=== PATIENT | male | born 1990 | race Hispanic/Latino ===

== ENCOUNTER 2024-06-04 17:13 | Emergency (ER) | payer BC ==
[~2024-06-04] VITALS: Ht 185.4 cm; Wt 117.0 kg
--- NOTE | 2024-06-04 17:18 | NUR ---
UA CUP PROVIDED
--- NOTE | 2024-06-04 17:26 | ERN ---
ED Note History of Present Illness Stated Complaint: ABD PAIN Chief Complaint: Abdominal Pain Time Seen by MD: 17:15 Time Seen by Midlevel: 17:15 Dictation: The patient is a 34-year-old male with no past medical history who presents to the emergency department with complaints of epigastric abdominal pain onset yesterday associated with nausea. Reports diarrhea episodes on Friday. Patient denies any constipation, fevers. Denies any urinary discomfort. Allergies: Coded Allergies: Penicillins (Unverified Allergy, Unknown, 06/04/24) Past Medical History Past Medical History: No Pertinent History Surgical History: None RN Note Reviewed/Agreed w/PFSH: Yes Review of System Dictation Constitutional: Negative for fever,chills, and weight loss Eyes: Negative for injury, pain,redness, and discharge ENT: Negative for injury,pain or swelling Cardiovascular: Negative for chest pain, palpitations, and edema Respiratory: Negative for shortness of breath, cough, and wheezing, Abdomen/GI: Negative for , vomiting, diarrhea, and constipation positive for abdominal pain, nausea Back: Negative for injury and pain : Negative for injury, bleeding and discharge MS/Extremity: Negative for injury and deformity Skin: Negative for rash, and discoloration Neuro: Negative for headache, weakness, numbness, tingling, and seizure Psych: Negative for suicide ideation, homicidal ideation, and hallucinations Initial Vital Sign VS Vital Signs Date Time Temp Pulse Resp B/P (MAP) Pulse Ox O2 Delivery O2 Flow Rate FiO2 06/04/24 17:15 97.0 87 16 154/99 99 Room Air 06/04/24 19:42 0 21 Physical Exam Dictation Vital Signs reviewed General Appearance: Alert, oriented x 3, no acute distress, well developed, nourished. Head and Face: non-traumatic. Eyes: PERRL, pink conjunctivas, eyelid no trauma, anterior chamber with arcus senilis. Ears: Pinnas intact and no signs of trauma or erythema ear canals clear and no discharge TM no erythema Nose: No discharge, no bleeding. Oropharynx: Mouth normal, tongue pink. pharynx clear,no erythema, tonsils no exudates, no abscesses noted, mucous membrane moist Neck: Supple, non-tender, no thyromegaly, no masses, no JVD, no bruits Breast:Deferred Chest:No tenderness, no crepitus, no paradoxical movement, no retractions Lungs:Clear, well-ventilated, symmetric, no rales, no wheezing, no rhonchi, no stridor, good breath sounds bilaterally Heart: Regular rate, regular rhythm, no murmur, no gallops Vascular: no peripheral edema, Abdomen: Soft, positive bowel sounds, nondistended, no guarding, nontender, no rebound, no masses no hepatomegaly, no splenomegaly, no Gary's sign, no hernias. Rectal: Deferred Genital: Deferred Neurological: Normal speech, motor function intact, sensory function intact Musculoskeletal: Neck nontender, full range of motion, back nontender, full range of motion, Extremities: nontender, full range of motion Skin: Color pink, dry, no turgor, no rash, no lacerations, no abrasions, no contusions. Lymphatic: Deferred Results (Laboratory/Radiology) Laboratory/Radiology Laboratory Tests Test 06/04/24 17:45 White Blood Count 10.7 K/uL (4.8-10.8) Red Blood Count 5.46 MIL/uL (4.50-6.20) Hemoglobin 16.4 g/dL (14.0-18.0) Hematocrit 48.8 % (42-54) Mean Corpuscular Volume 89.4 fL (79-99) Mean Corpuscular Hemoglobin 30.0 pg (27.0-33.0) Mean Corpuscular Hemoglobin Concent 33.6 g/dL (32.0-36.0) Red Cell Distribution Width 12.8 % (11.0-15.5) Platelet Count 265 K/uL (130-400) Mean Platelet Volume 10.7 fL (7.5-10.5) H Immature Granulocyte % (Auto) 0.4 % (0-1) Neutrophils (%) (Auto) 76.0 % (40.0-77.0) Lymphocytes (%) (Auto) 16.6 % (21.0-51.0) L Monocytes (%) (Auto) 6.0 % (3.0-13.0) Eosinophils (%) (Auto) 0.7 % (0.0-8.0) Basophils (%) (Auto) 0.3 % (0.0-5.0) Neutrophils # (Auto) 8.2 K/uL (1.8-7.7) H Lymphocytes # (Auto) 1.8 K/uL (1.0-4.8) Monocytes # (Auto) 0.6 K/uL (0.1-1.0) Eosinophils # (Auto) 0.07 K/uL (0.00-0.70) Basophils # (Auto) 0.03 K/uL (0.00-0.20) Absolute Immature Granulocyte (auto 0.04 K/uL (0-1) Nucleated Red Blood Cells 0.0 % (0.0-0.19) Sodium Level 139 mmol/L (136-145) Potassium Level 4.0 mmol/L (3.5-5.1) Chloride Level 103 mmol/L (101-111) Carbon Dioxide Level 32 mmol/L (21-32) Blood Urea Nitrogen 12 mg/dL (7-18) Creatinine 0.9 mg/dL (0.5-1.3) Glomerular Filtration Rate Calc 114 mL/min (>90) Random Glucose 91 mg/dL (70-105) Total Calcium 8.8 mg/dL (8.5-10.1) Total Bilirubin 0.5 mg/dL (0.2-1.0) Direct Bilirubin 0.1 mg/dL (0.0-0.3) Aspartate Amino Transf (AST/SGOT) 64 U/L (10-37) H Alanine Aminotransferase (ALT/SGPT) 151 U/L (12-78) H Alkaline Phosphatase 93 U/L (50-136) Total Protein 8.6 g/dL (6.0-8.3) H Albumin 4.0 g/dL (3.5-5.0) Lipase 30 U/L (16-77) REASON: epigastric pain, elevated lfts ORDERING PHYSICIAN: BEN CRANE PROCEDURE: [id number] - US ABDOMINAL RUQ\LTD US ABDOMINAL RUQ\E\LTD HISTORY: epigastric pain, elevated lfts TECHNIQUE: US ABDOMINAL RUQ\E\LTD. FINDINGS: LIVER: Diffuse increased echogenicity of the liver is seen suggestive of hepatic parenchymal disease, such as hepatic steatosis. Liver measures 17.3 cm. Areas of focal fatty sparing seen in the gallbladder fossa. GALLBLADDER: Small gallstones are seen. There is no evidence of gallbladder wall thickening. CBD: Measures up to not visuallycm. PANCREAS: Not visualized RIGHT KIDNEY: measures 12.3cm in length. No hydronephrosis or calculi. Study is degraded to prominent bowel gas. IMPRESSION: Hepatic steatosis. Small gallstones. CBD and pancreas were not visualized. Labs Reviewed?: Yes ED Course ED Course Orders Procedure Category Date Status Time Cbc With Differential LAB 06/04/24 Complete 17:23 Urinalysis Profile LAB 06/04/24 Logged 17:23 0.9%Nacl 1000ml (Ns PHA 06/04/24 In Process 1000ml) 17:30 Lidocaine Hcl 2% PHA 06/04/24 In Process Viscous (Lidocaine Hcl 17:30 Mag/Alum/Simeth 30ml PHA 06/04/24 In Process (Maalox Plus 30ml) 17:30 Pantoprazole 40mg Inj PHA 06/04/24 In Process (Protonix 40mg Inj 17:30 Dicyclomine Hcl PHA 06/04/24 In Process (Bentyl 10mg/5ml 17:30 Lipase LAB 06/04/24 Complete 17:23 Basic Metabolic Panel LAB 06/04/24 Complete 17:23 Hepatic Function Panel LAB 06/04/24 Complete 17:23 Ondansetron 4mg Inj PHA 06/04/24 In Process (Zofran 4mg Inj) 17:30 Us Abdominal Ruq\Ltd US 06/04/24 Resulted 18:22 Current Medications Medications (Trade) Dose Ordered Sig/Priscila Route PRN Reason Start Time Stop Time Status Last Admin Dose Admin Al Hydroxide/Mg Hydroxide (MAALox PLUS 30ML) 30 ml ONCE PO 06/04/24 17:30 06/04/24 22:30 06/04/24 19:30 Dicyclomine HCl (Bentyl 10mg/5ml Syrup) 10 mg ONCE PO 06/04/24 17:30 06/04/24 22:30 06/04/24 19:31 Lidocaine HCl (Lidocaine HCl 2% Viscous) 10 ml ONCE PO 06/04/24 17:30 06/04/24 22:30 06/04/24 19:31 Ondansetron HCl (zoFRAN 4MG INJ) 4 mg ONCE IVP 06/04/24 17:30 06/04/24 22:30 06/04/24 19:31 Pantoprazole Sodium (PROTonix 40MG INJ) 40 mg ONCE IVP 06/04/24 17:30 06/04/24 22:30 06/04/24 19:31 Sodium Chloride 1,000 ml @ 0 mls/hr ONCE IV 06/04/24 17:30 06/05/24 17:29 06/04/24 19:30 Vital Signs Date Time Temp Pulse Resp B/P (MAP) Pulse Ox O2 Delivery O2 Flow Rate FiO2 06/04/24 19:42 98.8 84 20 132/60 98 Room Air* 0 21 06/04/24 17:15 97.0 87 16 154/99 99 Room Air Medical Decision Making MDM The patient is a 34-year-old male with no past medical history who presents to the emergency department with complaints of epigastric abdominal pain onset yesterday associated with nausea. Reports diarrhea episodes on Friday. Patient denies any constipation, fevers. Denies any urinary discomfort. CBC showed no leukocytosis, no anemia, chemistry showed no electrolyte imbalance, mild elevated LFTs. Ultrasound revealed small amount of gallstones. Patient reports pain improved. Was eating during ultrasound. No tenderness to palpation. No Gary sign. Patient will be discharged to follow up with primary doctor. Patient no acute distress, nontoxic appearance. Differential diagnosis: Gastritis, gastroenteritis, electrolyte imbalance, dehydration Need for hospitalization: Patient does not meet criteria for hospitalization. There are no social concerns with this patient. DX & DISP Disposition: Discharge Departure Impression: Primary Impression: Epigastric abdominal pain Additional Impressions: Gastritis, Gallstones Condition: Stable Scripts Ondansetron (Ondansetron Odt) 4 Mg Tab.rapdis 4 MG PO Q6HPRN PRN for nausea, #16 TAB 0 Refills Prov: BEN CRANE 06/04/24 Pantoprazole Sodium (Pantoprazole Sodium) 20 Mg Tablet.dr 1 TAB PO DAILY for 30 Days, #30 TAB 0 Refills Prov: BEN CRANE 06/04/24 Additional Instructions: Please follow up with your primary doctor in 1-2 days. If symptoms worsen please return to ER. Avoid any fatty foods or foods that exacerbate your abdominal pain. FOLLOW-UP WITH PRIMARY CARE PROVIDER IN 1 TO 2 DAYS. TAKE MEDICATIONS DIRECTED HERE IN THE EMERGENCY ROOM. OKAY TO CONTINUE HOME MEDICATIONS UNLESS OTHERWISE DISCUSSED DURING YOUR VISIT IN THE EMERGENCY ROOM TODAY. RETURN TO YOUR NEAREST EMERGENCY ROOM IF SYMPTOMS WORSEN OR IF THERE IS NO IMPROVEMENT. CALL 911 IF YOU NEED IMMEDIATE ASSISTANCE. TAKE TYLENOL OR MOTRIN [id number] NEEDED AND IF NO CONTRAINDICATIONS ARE PRESENT. INCREASE ORAL HYDRATION. A WOUND CULTURE OR URINE CULTURE WAS ORDERED HERE IN THE EMERGENCY ROOM DEPARTMENT PLEASE FOLLOW-UP WITH PRIMARY CARE PROVIDER AND ADVISE THEM TO GET REPEAT PORTS FROM OUR FACILITY. IF YOU HAD ANY MARTIN WRAP/SPLINTS THAT WERE APPLIED HERE, PLEASE DO NOT REMOVE THEM UNTIL YOU SEE YOUR PRIMARY CARE OR SPECIALTY. Referrals: SELF,REFERRAL (PCP) Time of Disposition: 20:59 I have reviewed the case, and I agree with, Diagnosis and Plan BEN CRANE [employer] Jun 04, 2024 17:26
[2024-06-04 17:54] LABS: BASOPHILS # (AUTO) 0.03 K/uL (0.00-0.20); BASOPHILS % (AUTO) 0.3 % (0.0-5.0); EOSINOPHILS # (AUTO) 0.07 K/uL (0.00-0.70); EOSINOPHILS % (AUTO) 0.7 % (0.0-8.0); HEMATOCRIT 48.8 % (42-54); IMMATURE GRANULOCYTE ABSOLUTE 0.04 K/uL (0-1); LYMPHOCYTES # (AUTO) 1.8 K/uL (1.0-4.8); LYMPHOCYTES % (AUTO) 16.6 % (21.0-51.0); MEAN CORPUSCULAR HGB CONC 33.6 g/dL (32.0-36.0); MEAN CORPUSCULAR VOLUME 89.4 fL (79-99); MONOCYTES # (AUTO) 0.6 K/uL (0.1-1.0); NEUTROPHILS # (AUTO) 8.2 K/uL (1.8-7.7); PLATELET COUNT (AUTO) 265 K/uL (130-400); RED BLOOD CELL COUNT(AUTO) 5.46 MIL/uL (4.50-6.20); RED CELL DISTRIBUTION WIDTH 12.8 % (11.0-15.5); WHITE BLOOD COUNT (AUTO) 10.7 K/uL (4.8-10.8)
[2024-06-04 18:03] LABS: CREATININE 0.9 mg/dL (0.5-1.3)
[2024-06-04 18:08] LABS: BILIRUBIN,DIRECT 0.1 mg/dL (0.0-0.3); BILIRUBIN,TOTAL 0.5 mg/dL (0.2-1.0); TOTAL PROTEIN, SERUM 8.6 g/dL (6.0-8.3)
[2024-06-04] MEDS: 0.9%NACL 1000ML 1,000 ML IV SCH (19:30)
[2024-06-04] MEDS: MAG/ALUM/SIMETH 30 ML UDCUP PO SCH (19:30)
[2024-06-04] MEDS: DICYCLOMINE HCL 10 MG/5 ML ML PO SCH (19:31)
[2024-06-04] MEDS: LIDOCAINE HCL 2% VISCOUS 15 ML UDCUP PO SCH (19:31)
[2024-06-04] MEDS: PANTOPrazole 40 MG/VIAL IVP SCH (19:31)
[2024-06-04] MEDS: ondanSETRON 4MG INJ IVP SCH (19:31)
--- NOTE | 2024-06-04 20:00 | HMCIMG ---
US ABDOMINAL RUQ\E\LTD HISTORY: epigastric pain, elevated lfts TECHNIQUE: US ABDOMINAL RUQ\E\LTD. FINDINGS: LIVER: Diffuse increased echogenicity of the liver is seen suggestive of hepatic parenchymal disease, such as hepatic steatosis. Liver measures 17.3 cm. Areas of focal fatty sparing seen in the gallbladder fossa. GALLBLADDER: Small gallstones are seen. There is no evidence of gallbladder wall thickening. CBD: Measures up to not visuallycm. PANCREAS: Not visualized RIGHT KIDNEY: measures 12.3cm in length. No hydronephrosis or calculi. Study is degraded to prominent bowel gas. IMPRESSION: Hepatic steatosis. Small gallstones. CBD and pancreas were not visualized.
[2024-06-04] MEDS ORDERED: PANT20TA18 PO (21:00)
[2024-06-04] MEDS ORDERED: ONDA-243 PO (21:00)
[2024-06-04 21:07] VITALS: BP 128/67; PULSE 80; RESP 18; TEMP 98.1; O2SAT 98
== END 2024-06-04 21:23 | disposition home or self-care (01) ==
LOC: EDH 17:13
DX: K29.70 Gastritis, unspecified, without bleeding (principal); K80.20 Calculus of gallbladder without cholecystitis without obstruction; Z88.0 Allergy status to penicillin
CPT/HCPCS: 99285; 96374; 76705; 96375; 80076; 80048; 83690; 85025; 36415; J7030; J2405; J2470